=== PATIENT | female | born 1960 | race Caucasian/White ===

== ENCOUNTER → 2017-01-23 | Outpatient (CLI) | payer OTHER | LOC: BRMIMAGING 08:36 | PROVIDERS: ATTEND Internal Medicine Hematology & Oncology | DX: Z12.39 Encounter for other screening for malignant neoplasm of breast (principal); N63 Unspecified lump in breast; Z85.3 Personal history of malignant neoplasm of breast | CPT/HCPCS: 76641-PO; G0206 ==

== ENCOUNTER → 2017-02-13 | Outpatient (CLI) | payer OTHER ==
[~2017-02-13] MED LIST: GADOBUTROL 10 ML VIAL IVP ONE
== END ==
LOC: FIMAGING 06:48
PROVIDERS: ATTEND Internal Medicine Hematology & Oncology
DX: R92.8 Other abnormal and inconclusive findings on diagnostic imaging of breast (principal); Z85.3 Personal history of malignant neoplasm of breast; Z90.11 Acquired absence of right breast and nipple
CPT/HCPCS: 0159T; 77059; A9585; C8908

== ENCOUNTER 2017-02-20 11:37 | Observation (INO) | payer OTHER ==
[2017-02-20] MEDS ORDERED: LIDOCAINE 1% 2 ML INJ ONE (11:47)
[2017-02-20] MEDS ORDERED: LIDOCAINE 1% 5 ML SDV ID PRN (12:24)
[2017-02-20] MEDS ORDERED: LR 1,000 ML IV ONE (12:24)
[2017-02-20] MEDS ORDERED: PROPOFOL 200 MG/20 ML VIAL ONE ×3 (13:06→15:22)
[2017-02-20] MEDS ORDERED: fentaNYL 250 MCG/5 ML INJ ONE ×2 (13:07→15:13)
[2017-02-20] MEDS ORDERED: ROCURONIUM 50 MG/5 ML VIAL ONE ×2 (13:09→14:56)
[2017-02-20] MEDS ORDERED: DEXAMETHASONE 4 MG/ML VIAL ONE (13:09)
[2017-02-20] MEDS ORDERED: BUPIVACAINE 0.25% 30 ML SDV ONE (13:19)
[2017-02-20] MEDS ORDERED: MIDAZOLAM 2 MG/2 ML VIAL ONE (13:25)
[2017-02-20] MEDS ORDERED: ENALAPRILAT DIHYDRATE 1.25 MG/ML VIAL ONE (14:07)
[2017-02-20] MEDS ORDERED: REMIFENTANIL HCL 1 MG VIAL ONE (14:29)
[2017-02-20] MEDS ORDERED: ONDANSETRON 4 MG/2 ML VIAL ONE ×4 (14:47→16:39)
[2017-02-20] MEDS ORDERED: NEOSTIGMINE METHYLSULFATE 5 MG/5 ML SYR ONE (15:51)
[2017-02-20] MEDS ORDERED: GLYCOPYRROLATE 0.2 MG/1 ML VIAL ONE (15:52)
[2017-02-20] MEDS ORDERED: fentaNYL 100 MCG/2 ML INJ ONE (17:15)
[2017-02-20] MEDS ORDERED: HYDROCODONE/APAP 5/325 TAB PO PRN (17:18)
[2017-02-20] MEDS ORDERED: ONDANSETRON DISINTEGRATING 4 MG TAB PO PRN (17:26)
[2017-02-20] MEDS ORDERED: PROMETHAZINE HCL 25 MG SUPPR PR ONE (17:30)
[2017-02-20 21:17] VITALS: RESP 18
[2017-02-21] MEDS ORDERED: ceFAZolin 1 GM in NS 100 ML IV ONE (07:51)
--- NOTE | 2017-02-21 07:56 | SOAPPROG ---
SOAP Progress Note Assessment/Plan: Assessment: 1 day post-op. Stable. Plan: Regular diet. It well tolerated, discharge home today. The patient will follow-up with me in 2 weeks. Se has Percocet Rx at home. Instructions given, questions answered. 02/21/17 07:53 Subjective: Fidelina appears well this morning. Surgery discussed. She had one episode on vomiting last night but feels well now. She has been up to the bathroom to void. Pain is manageable. She feels ready to try some solid food. Objective: Vital Signs Temp Pulse Resp BP Pulse Ox 37.9 C 99 18 134/89 H 96 02/21/17 04:00 02/21/17 04:00 02/21/17 04:00 02/21/17 04:00 02/21/17 04:00 02/20/17 02/21/17 02/22/17 05:59 05:59 05:59 Intake Total 1000 Output Total 50 Balance 950 Abdomen is soft. Minimal distention. Bandaids and steri-strips in place - Pending Discharge Pending Discharge Within 24 Hours: Yes Pending Discharge Date: 02/22/17 Pending Discharge Time: 11:00 ICD10 Worksheet Patient Problems: Problems Problem Status Onset Personal history of breast cancer Acute - ICD10 Problem Qualifiers (1) Personal history of breast cancer
[2017-02-21 09:10] VITALS: BP 150/103; PULSE 84; TEMP 98.3; O2SAT 98
--- NOTE | 2017-02-21 17:05 | GOP ---
[f rep st] OPERATIVE REPORT DATE OF OPERATION: 02/20/2017 SURGEON: Clarisa Schwab MD KICK PRESS SETTER: None. ANESTHESIA: General endotracheal tube. ANESTHESIOLOGIST: Guillermo Sullivan MD PREOPERATIVE DIAGNOSIS: Personal history of estrogen sensitive breast cancer. POSTOPERATIVE DIAGNOSIS: Personal history of estrogen sensitive breast cancer. PROCEDURE PERFORMED: Attempted laparoscopic bilateral salpingo-oophorectomy converted to laparotomy with right salpingectomy, left salpingo-oophorectomy, and lysis of adhesions. FINDINGS: ESTIMATED BLOOD LOSS: 50 cc DESCRIPTION OF PROCEDURE: The patient had given informed consent, was taken to the operating room a nd placed in the supine position. She was administered general endotracheal tube anesthesia and her legs were placed in Rodrigue stirrups. An exam under anesthesia was performed. The patient was prepped and draped in the usual sterile fashion. My attention was first turned toward the perineum. A specul um was inserted into the vagina. A fine tenaculum was placed on the anterior lip of the cervix. The acorn cannula was inserted for manipulation of the uterus during surgery. Next, our attention was turned toward the abdomen. Marcaine plain 0.25% was injected into the subumb ilical skin. A 5 mm vertical hari was made at the subumbilical skin and the Veress needle was placed . Proper intraperitoneal placement was noted by the saline drop test and low insufflating pressure. The abdomen was insufflated to 15 mmHg. The Veress needle was withdrawn, and the 5 mm serially dilat ing trocar with the 5 mm zero-degree scope and camera setup was then inserted under continuous direc t visualization. The pelvis was inspected, and the patient placed Trendelenburg. The bowel appeared normal, as did the liver edge and the portion of gallbladder that was seen. There were no adhesions in the abdomen. We then looked towards the pelvis. Neither ovary was initially visualized. We place d additional ports, one on the right inferior to the umbilicus and the other on the left, and 0.25% plain Marcaine was injected at each site, and each site was examined laparoscopically to ensure that we avoid any vessels. The right port was a 5 mm port and the left was a 10 mm port. They were both placed without incident. Then atraumatic graspers and blunt probes were placed through these ports in order to manipulate the bowel out of the pelvis and to more carefully inspect the adnexa. Initially neither ovary was visua lized. We were then able to visualize the left ovary adherent to the posterior aspect of the uterus. There were some other filmy adhesions of the bowel to the midline posterior aspect of the uterus. C areful inspection on the right did not reveal the ovary at all. Both tubes appeared normal with fine fimbriae. We started with the left and used the Gyrus instrument as well as the Harmonic scalpel. T he portion of the tube as it entered the uterus was desiccated using the Gyrus instrument. It was th en incised. In order view the ovary better, we decided to remove the entire tube, incising along the mesosalpinx using the Harmonic scalpel. The tube was placed in the anterior cul-de-sac. The same pr ocedure was performed on the contralateral side. Then each tube was removed through the 10 mm port. The left ovary was densely adherent to the posterior aspect of the uterus, and despite multiple atte mpts it was quite difficult to separate it off the uterus. Additionally, we could not identify the r ight ovary despite multiple attempts at manipulation of the bowel. We chose to perform a mini laparo vanda. The laparoscopic instruments were removed. A small transverse Pfannenstiel incision was made. This c arried to the level of the fascia, which was incised and the incision extended laterally on both nataliia es. The rectus muscle was identified and in the midline. The peritoneum was grasped and op ened with Metzenbaum scissors, and then the incision was extended. Five lap pads were placed in the abdomen to move the bowel anteriorly in order to better visualize the uterus and adnexa. The left ov lexi was dissected off the posterior aspect of the uterus, but during dissection it was quite friable and it tore off in a number of pieces. the ovary along with the left tube was sent in o ne container. Initially, the left infundibulopelvic ligament was ligated and then incised. The left utero-ovarian ligament was cauterized in order to remove the ovary. Adhesions were lysed on the post erior aspect of the uterus. We then spent quite a bit of time carefully examining the right adnexal region. The ovary could not be found despite multiple attempts. Initially, it appeared that the ovar y was perhaps adherent and encased in adhesions, but with dissection it was not found. Therefore, we decided to terminate the case at that point. The pelvis was irrigated and it was carefully inspected. Hemostasis was noted. The lap pads were rem aarti from the abdomen. The fascia was closed with 0 Vicryl, and then 4-0 Vicryl was used in a subcut icular fashion to close the skin. At this point, we decided to perform laparoscopy once again to ens ure that we did not see any evidence of a right ovary. This was done, and again, no ovarian tissue w as identified. Therefore, the case was terminated. The gas was allowed to escape from the abdomen. 4 -0 Vicryl was used on the subumbilical and right port site to close the skin in a subcuticular fashi on. Then 0 Vicryl was used to close the fascia on the 10/12 mm site of the lower left abdomen. 4-0 V icryl was then used in a subcuticular fashion to reapproximate the skin. Then 0.25% plain Marcaine w as injected into all of the skin sites. Steri-Strips were placed on the mini laparotomy site, and Ba nd-Aids were placed on the laparoscopic port sites. The specimens that were sent were the left tube and ovary, and then separately right tube. The vagin al instruments were removed. Sponge, instrument, and needle counts were reported as correct at the e nd of the case. The patient tolerated the procedure well. Anesthesia was reversed, and the patient w as taken to the recovery room in stable condition. INTRAOPERATIVE COMPLICATIONS: No complications, but pelvic adhesions, adhesions of the left ovary t o the posterior uterus, making laparoscopic removal difficult. Additionally, the right ovary was not visualized despite multiple attempts during laparoscopy. Therefore, the procedure was converted to open. /[id number]/MODL
== END 2017-02-21 12:30 | disposition home or self-care (01) ==
LOC: FSGY 11:37 → F3E 18:25 → FOB 19:29
PROVIDERS: ADMIT Obstetrics & Gynecology; ATTEND Obstetrics & Gynecology
DX: Z40.02 Encounter for prophylactic removal of ovary(s) (principal); Z85.3 Personal history of malignant neoplasm of breast; N73.6 Female pelvic peritoneal adhesions (postinfective); Z53.31 Laparoscopic surgical procedure converted to open procedure; I10 Essential (primary) hypertension; Z90.11 Acquired absence of right breast and nipple
CPT/HCPCS: 58720; G0378; J0690; J1100; J2250; J2405; J2704; J2710; J3010

== ENCOUNTER → 2017-07-31 | Outpatient (CLI) | payer OTHER | LOC: FIMAGING 07:00 | PROVIDERS: ATTEND Internal Medicine Hematology & Oncology | DX: R92.8 Other abnormal and inconclusive findings on diagnostic imaging of breast (principal); Z85.3 Personal history of malignant neoplasm of breast | CPT/HCPCS: 0159T; 77059; A9585; C8908 ==

== ENCOUNTER → 2018-01-26 | Outpatient (CLI) | payer OTHER | LOC: FIMAGING 10:28 | PROVIDERS: ATTEND Internal Medicine Hematology & Oncology | DX: Z13.820 Encounter for screening for osteoporosis (principal); M85.89 Other specified disorders of bone density and structure, multiple sites; N64.1 Fat necrosis of breast; N95.9 Unspecified menopausal and perimenopausal disorder; Z85.3 Personal history of malignant neoplasm of breast ==

== ENCOUNTER → 2018-05-30 | Outpatient (CLI) | payer OTHER | LOC: FIMAGING 09:18 | PROVIDERS: ATTEND Internal Medicine Hematology & Oncology | DX: D39.0 Neoplasm of uncertain behavior of uterus (principal); R93.8 Abnormal findings on diagnostic imaging of other specified body structures ==

== ENCOUNTER → 2019-01-30 | Outpatient (CLI) | payer OTHER | LOC: FIMAGING 08:18 | PROVIDERS: ATTEND Internal Medicine Hematology & Oncology | DX: Z12.31 Encounter for screening mammogram for malignant neoplasm of breast (principal); Z85.3 Personal history of malignant neoplasm of breast; Z90.11 Acquired absence of right breast and nipple ==